=== PATIENT | female | born 2000 | race Caucasian/White ===

== ENCOUNTER 2024-07-09 15:43 | Emergency (ER) | payer MEDICARE, SELFPAY ==
[2024-07-09 15:45] VITALS: BP 111/78
--- NOTE | 2024-07-09 18:01 | ED.GENMED ---
History of Present Illness
General
Chief Complaint: Psychiatric Problem
Source: patient
Time Seen by Provider: 07/09/24 17:40
History of Present Illness
History of Present Illness:
23-year-old female presents to the emergency room requesting to be evaluated by [facility]. Patient's believes that there is a chip implanted in her head by the government that is bothering her. She denies any suicidal or homicidal ideations. She
denies any ingestions. She uses nicotine but denies any other recreational drug use or alcohol use.
Past History
Past History
ED Past Medical History: Psychiatric
ED Past Surgical History: None
Social History
Tobacco: Non-smoker
Alcohol: None
Drug: Other (ecstacy)
Personal: Single
Living: with family
Employment: Not employed
Family History
Family History: Other (Mother with narcissus and per the patient)
Phy Exam
Physical Exam
Physical Exam:
General: Awake, Alert, Oriented X3. No acute distress, somewhat flat
Vitals: unremarkable
Head: Atraumatic
Eyes: Pupils equal, EOMI
Throat: Airway intact, no exudates
Neck: Trachea midline
Lungs: Clear and equal b/l
Heart: Regular rate, no murmurs
Neuro: Nonfocal
Skin: Warm, dry, no rash
Extremities: pulses equal b/l, no edema
Course
Orders/Labs/Results
Orders:
Orders
07/09/24 16:11
Crisis Consult Urgent
Reason for Consult: pt requesting inpt for depression
07/09/24 18:00
Test Result ONCE
07/09/24 20:22
Ipratropium/Albuterol Sulfate [Duoneb] 3 ml .ROUTE .STK-MED ONE
07/09/24 20:23
Dexamethasone Sod Phosphate [Decadron] 20 mg .ROUTE .STK-MED ONE
EPINEPHrine PF [Adrenalin] 1 mg .ROUTE .STK-MED ONE
Vital Signs
Initial and Last Documented VS:
Initial Vital Signs
Temp Pulse Resp BP Pulse Ox
97.9 F 86 16 111/78 100
07/09/24 15:45 07/09/24 15:45 07/09/24 15:45 07/09/24 15:45 07/09/24 15:45
Last Documented Vital Signs
Temp Pulse Resp BP Pulse Ox
97.9 F 80 20 114/72 99
07/09/24 15:45 07/09/24 20:03 07/09/24 20:03 07/09/24 20:03 07/09/24 20:03
MDM/Problems Addressed
Differential Diagnosis Includes:
Psychosis
MDM/Problems Addressed:
Patient has come to the emergency room to see a bilingual social worker at [facility]. She has no medical complaints. There is no medical issues identified on her brief screening exam. Patient medically cleared for what ever treatment [facility] deems
appropriate.
*Pulse Oximetry
Patient hypoxic: no
*Critical Care Note
Total Time (30-74mins, 75-104mins- exclusive of procedures): Not Applicable
ED Attending Note
-
Portions of this chart may have been created with voice recognition software.� Occasional wrong word or��sound alike� substitutions may have occurred due to the inherent limitations of voice recognition software.
Discharge Plan
Departure
Patient Disposition: Home (Routine Discharge)
Date of Disposition: 07/09/24
Time of Disposition: 18:06
Patient with high blood pressure during this ER visit?: No
Condition: Good
Discharge Problem:
Psychosis
Instructions: Schizophrenia, Depression, Adult (DC), Schizophrenia (DC), Depression, Adult ED
Prescriptions:
No Action
clonazepam 0.5 mg tablet
0.5 mg PO Q48H PRN (Reason: anxiety)
Patient Comments:
05/23/2023: last filled 04/28/23, 15 tabs for 30 days from [facility] #[id number]
buspirone 10 mg tablet
10 mg PO BID
Patient Comments:
05/23/2023: Filled 04/28/23 with directions: 5mg po bid for 4 days, maintained 10mg po bid
prazosin 2 mg capsule
2 mg PO HS
bupropion HCl 150 mg tablet extended release 24 hr
150 mg PO DAILY
Interventions
Interventions:
*Risk Screen - Suicide Last Done: 07/09/24 15:51
*Neglect/Abuse Screening Last Done: 07/09/24 15:51
ED- Fall Risk Assessment Last Done: 07/09/24 17:19
*Nursing Disposition Last Done: 07/09/24 22:15
ED-Psychological Assessment Last Done: 07/09/24 17:19
Discharge Date and Time
Discharge Date/Time: 07/09/24 22:20
Print Language: ERITREAN
[2024-07-09 20:03] VITALS: BP 114/72
== END 2024-07-09 22:20 | disposition home or self-care (01) ==
LOC: EMR 15:43
PROVIDERS: EMERGENCY PHYSICIAN Emergency Medicine
DX: F29 Unspecified psychosis not due to a substance or known physiological condition (principal); F32.A Depression, unspecified
CPT/HCPCS: 99282

== ENCOUNTER 2024-08-04 03:39 | Emergency (ER) | payer MEDICARE, SELFPAY ==
[2024-08-04 03:59] VITALS: BP 91/55
--- NOTE | 2024-08-04 04:53 | EDRN ---
Per Dr Ambriz, pt given option of leaving now then going to [place] or staying [facility] to arrange transport for pt to [place] for around 829.
--- NOTE | 2024-08-04 05:07 | ED.GENMED ---
History of Present Illness
General
Chief Complaint: Anxiety
Source: patient
Exam Limitations: none
Time Seen by Provider: 08/04/24 04:39
Nursing documentation reviewed up to this point in time: agreed with
History of Present Illness
History of Present Illness:
Pleasant 23-year-old female presents to the emergency department with increased anxiety. She does have schizoaffective disorder and she is being treated by [facility] in their intensive outpatient program. She is due to be there by 830 this
morning. Last evening she started to have increased anxiety and started to hallucinate. These are her typical symptoms. She is in the midst of a medication change. She was on risperidone which she is tapering off and is starting Vraylar. She
does not feel that it is as effective. Patient denies suicidal homicidal ideation, intent, or plan. She is accompanied by her brother who drove her here. He does not have concerns for SI. Patient does not wish to be treated at this time but
wishes to be seen at her normal appointment at the [facility] for intensive outpatient treatment. She states that just being in the ER was comforting to her and solved her anxiety issues.
Past History
Past History
ED Past Medical History: Psychiatric
ED Past Surgical History: None
Social History
Tobacco: Non-smoker
Alcohol: None
Drug: Other (ecstacy)
Personal: Single
Living: with family
Employment: Not employed
Family History
Family History: Other (Mother with narcissus and per the patient)
Review of Systems
Review of Systems
Allergies reviewed?: Yes
Other source history: family
All Other Systems: ROS reviewed and negative except as documented in HPI and ROS
Constitutional: Reports no symptoms
EENT: Reports no symptoms
Respiratory: Reports no symptoms
Cardiac: Reports no symptoms
ABD/GI: Reports no symptoms
: Reports no symptoms
Musculoskeletal: Reports no symptoms
Skin: Reports no symptoms
Neurological: Reports no symptoms
Endocrine: Reports no symptoms
Hematologic/Lymphatic: Reports no symptoms
Psychiatric: Reports anxiety
Phy Exam
General Physical Exam
General Presentation: well appearing and no apparent distress
General Skin: warm and dry
General Habitus: normal
General Mental: alert
General Hydration: appears well hydrated
ENT Exam
ENT Exam: EOMI, pharynx normal, neck supple and normocephalic
Eye Exam
Eye Exam: PERRL, cornea clear and conjunctiva normal
Cardiovascular Exam
Cardiovascular Exam: regular rate/rhythm, no edema, no murmur and normal peripheral pulses
Pulmonary Exam
Pulmonary Exam: lungs clear, no respiratory distress, no rales, no crackles, no rhonchi, no stridor, no wheezing and no cough
Gastrointestinal Exam
Gastrointestinal Exam: normal bowel sounds, non tender, soft, no organomegaly, no pulsatile mass and non distended
Neurological Exam
Neurological Exam: alert, oriented x3, no motor deficits and speech normal
Musculoskeletal Exam
Musculoskeletal Exam: full ROM and no edema
Skin Exam
Skin Exam: normal color, warm/dry, no rash and no petechia
Psychiatric Exam
Psychiatric Exam: normal mood/affect
Course
Orders/Labs/Results
Orders:
Orders
08/04/24 04:17
Crisis Consult Urgent
Reason for Consult: increased anxiety and delusions
Vital Signs
Initial and Last Documented VS:
Initial Vital Signs
Temp Pulse Resp BP Pulse Ox
97.9 F 66 20 91/55 97
08/04/24 03:59 08/04/24 03:59 08/04/24 03:59 08/04/24 03:59 08/04/24 03:59
Last Documented Vital Signs
Temp Pulse Resp BP Pulse Ox
97.9 F 66 20 91/55 98
08/04/24 03:59 08/04/24 03:59 08/04/24 03:59 08/04/24 03:59 08/04/24 03:59
*Critical Care Note
Total Time (30-74mins, 75-104mins- exclusive of procedures): Not Applicable
ED Attending Note
-
Portions of this chart may have been created with voice recognition software.� Occasional wrong word or��sound alike� substitutions may have occurred due to the inherent limitations of voice recognition software.
Discharge Plan
Departure
Patient Disposition: Psych Facility
Date of Disposition: 08/04/24
Time of Disposition: 05:09
Discharge Problem:
Anxiety
Instructions: Anxiety, Adult (DC)
Prescriptions:
No Action
hydroxyzine pamoate [Vistaril] 50 mg Capsule
50 mg PO BID PRN (Reason: anxiety)
propranolol 20 mg Tablet
20 mg PO BID
Vraylar 4.5 mg Capsule
4.5 mg PO DAILY
Referrals:
[facility] [Active] -
Activity Restrictions/Additional Instructions:
It was a pleasure meeting you and taking part in your care. We hope for your continued healing and wellness.
Please read discharge instructions in their entirety. However, they are for general education and may not describe your exact diagnosis at discharge. Information on your ER visit and medical conditions were discussed with you along with appropriate
follow up information...
If indicated, please take your medications as instructed and indicated on discharge paperwork.
Please schedule a follow up appointment as directed. Call to schedule an appointment
Please return to the emergency department with ANY change in, persisting, or worsening of symptoms. If any of your symptoms do not improve, or persist, or become more severe within 6-12 hours, please return to the emergency department for further
care.
Please return to the emergency department if you develop a headache, neck pain/stiffness, fever greater than 100.4F, chest pain, shortness of breath, persistent nausea, vomiting, slurred speech, difficulty walking, numbness/tingling, weakness, signs
of infection or any other symptoms that are worrisome to you.
If you have any questions or concerns please do not hesitate to call the Hospital at or E-mail me directly at [email or web address]
Interventions
Interventions:
*Risk Screen - Suicide Last Done: 08/04/24 03:59
*General Assessment Last Done: 08/04/24 03:59
*Neglect/Abuse Screening Last Done: 08/04/24 03:59
ED- Fall Risk Assessment Last Done: 08/04/24 03:59
*ED COVID-19 Vaccine History Last Done: 08/04/24 03:59
ED-Psychological Assessment Last Done: 08/04/24 05:06
Discharge Date and Time
Print Language: GREEK
[2024-08-04 05:26] VITALS: BP 108/75
== END 2024-08-04 05:30 ==
LOC: EMR 03:39
PROVIDERS: EMERGENCY PHYSICIAN Student in an Organized Health Care Education/Training Program
DX: F41.9 Anxiety disorder, unspecified (principal); F25.9 Schizoaffective disorder, unspecified
CPT/HCPCS: 99285

== ENCOUNTER 2024-08-27 01:30 | Emergency (ER) | payer MEDICARE, SELFPAY ==
[2024-08-27 01:32] VITALS: BP 128/87
--- NOTE | 2024-08-27 01:44 | ED.GENMED ---
History of Present Illness
General
Chief Complaint: Crisis Evaluation
Source: patient
Exam Limitations: none
Time Seen by Provider: 08/27/24 01:31
Nursing documentation reviewed up to this point in time: agreed with
History of Present Illness
History of Present Illness:
24-year-old female presents via EMS for 302. She states that 'she has a chip in her brain '. She states that her 'covert narcissistic voice that is being relayed through the chip is telling her to kill herself '. She does have a previous suicide
attempt approximately 1-1/2 years ago. She has been diagnosed with schizoaffective disorder, anxiety, and PTSD. Her last menstrual period was 3 weeks ago. She states that she occasionally partakes in 'republican drugs '. Her last use was in April.
She denies alcohol. She does smoke tobacco.
Past History
Past History
ED Past Medical History: Psychiatric
ED Past Surgical History: None
Social History
Tobacco: Non-smoker
Alcohol: None
Drug: Other (ecstacy)
Personal: Single
Living: with family
Employment: Not employed
Family History
Family History: Other (Mother with narcissus and per the patient)
Review of Systems
Review of Systems
Allergies reviewed?: Yes
Other source history: ambulance crew
All Other Systems: ROS reviewed and negative except as documented in HPI and ROS
Psychiatric: Reports anxiety, suicidal (?) and hallucinations
Phy Exam
General Physical Exam
General Presentation: mild distress
General age: appears stated age
General Skin: warm and dry
General Habitus: normal
General Mental: alert and anxious
General Hydration: appears well hydrated
ENT Exam
ENT Exam: EOMI, pharynx normal, neck supple and normocephalic
Eye Exam
Eye Exam: PERRL, cornea clear and conjunctiva normal
Cardiovascular Exam
Cardiovascular Exam: regular rate/rhythm and no edema
Pulmonary Exam
Pulmonary Exam: lungs clear and no respiratory distress
Gastrointestinal Exam
Gastrointestinal Exam: normal bowel sounds, non tender, soft, no organomegaly, no pulsatile mass and non distended
Neurological Exam
Neurological Exam: alert and oriented x3
Musculoskeletal Exam
Musculoskeletal Exam: full ROM
Skin Exam
Skin Exam: normal color and warm/dry
Psychiatric Exam
Psychiatric Exam: anxious, delusions, hallucination, paranoia and suicidal (?)
Course
Orders/Labs/Results
Orders:
Orders
08/27/24 01:47
Test Result ONCE
08/27/24 01:48
Crisis Consult Urgent
Reason for Consult: suicidality
one to one [ED Special Safety Observation] ONCE
Observation level: One to Two
08/27/24 04:06
HCG, Urine Qualitative Screen Urgent
Date Specimen was Collected: 08/27/24
Time Specimen was Collected: 01:51
Urine Drug Abuse Screen Urgent
Date Specimen was Collected: 08/27/24
Time Specimen was Collected: 01:51
08/27/24 05:58
HydrOXYZINE [Atarax] 50 mg PO NOW STA
08/27/24 06:16
Propranolol [Inderal] 20 mg PO NOW STA
Vital Signs
Initial and Last Documented VS:
Initial Vital Signs
Temp Pulse Resp BP Pulse Ox
98.7 F 84 18 128/87 99
08/27/24 01:32 08/27/24 01:32 08/27/24 01:32 08/27/24 01:32 08/27/24 01:32
Last Documented Vital Signs
Temp Pulse Resp BP Pulse Ox
98.5 F 84 18 128/87 99
08/27/24 01:32 08/27/24 01:32 08/27/24 01:32 08/27/24 01:32 08/27/24 01:32
*Critical Care Note
Total Time (30-74mins, 75-104mins- exclusive of procedures): Not Applicable
Update Note
Update Note:
Patient was seen by telepsych. They recommended discharge to home.
Crisis told patient that telepsych did not recommend 302.
I feel strongly that patient should be 302. I wanted to discuss this with the patient.
Patient was upset because she did not want to be in a psychiatric hospital. She stated that ' just because the voices are telling her to harm herself does not mean she is actually going to do it 'she stated that the 'chip in her head 'is causing
some of her problems. \\
Patient has had a suicide attempt in the past.
Brother, who filled out the 302 is at the bedside and he is concerned because he has to go to work today and patient will be left alone immediately after discharge.
I do not feel that this is a safe situation. I have put in a consult to Dr. Cadet who is on-call for psychiatry today.
ED Attending Note
-
Portions of this chart may have been created with voice recognition software.� Occasional wrong word or��sound alike� substitutions may have occurred due to the inherent limitations of voice recognition software.
Discharge Plan
Departure
Patient Status:: 302
Condition: Good
Discharge Problem:
Acute paranoia, Suicidal ideation
Prescriptions:
No Action
hydroxyzine pamoate [Vistaril] 50 mg Capsule
50 mg PO BID PRN (Reason: anxiety)
propranolol 20 mg Tablet
20 mg PO BID
Vraylar 4.5 mg Capsule
6 mg PO DAILY
gabapentin 600 mg Tablet
600 mg PO HS
Referrals:
UNKNOWN - PT DOES,NOT KNOW [Family Provider] -
Interventions
Interventions:
*Risk Screen - Suicide Last Done: 08/27/24 01:32
*General Assessment Last Done: 08/27/24 01:32
*Neglect/Abuse Screening Last Done: 08/27/24 01:32
*ED- Fall Risk Assessment Last Done: 08/27/24 01:44
*ED COVID-19 Vaccine History Last Done: 08/27/24 01:44
ED-Psychological Assessment Last Done: 08/27/24 02:18
Discharge Date and Time
Print Language: ERITREAN
[2024-08-27 01:48] VITALS: BMI 18.6
[2024-08-27 01:49] VITALS: BMI 18.6
[2024-08-27 04:20] LABS: HCG, Urine Qualitative Screen Negative
[2024-08-27 05:04] LABS: Amphetamines Negative (Negative); Barbiturates Negative (Negative); Benzodiazepines Negative (Negative); Buprenorphine Negative (Negative); Cocaine Negative (Negative); Marijuana Negative (Negative); Methadone Negative (Negative); Methamphetamines Negative (Negative); Opiates Negative (Negative); Phencyclidine Negative (Negative); Tricyclic Antidepressants Negative (Negative)
[2024-08-27] MEDS: ATARAX 50 MG PO (06:09)
[2024-08-27 06:48] VITALS: BP 107/69
[2024-08-27] MEDS: INDERAL 20 MG PO (07:37)
--- NOTE | 2024-08-27 08:23 | ED.GENMED ---
History of Present Illness
General
Chief Complaint: Crisis Evaluation
Time Seen by Provider: 08/27/24 01:31
Past History
Past History
ED Past Medical History: Psychiatric
ED Past Surgical History: None
Social History
Tobacco: Non-smoker
Alcohol: None
Drug: Other (ecstacy)
Personal: Single
Living: with family
Employment: Not employed
Family History
Family History: Other (Mother with narcissus and per the patient)
Course
Orders/Labs/Results
Orders:
Orders
08/27/24 01:47
Test Result ONCE
08/27/24 01:48
Crisis Consult Urgent
Reason for Consult: suicidality
one to one [ED Special Safety Observation] ONCE
Observation level: One to Two
08/27/24 04:06
HCG, Urine Qualitative Screen Urgent
Date Specimen was Collected: 08/27/24
Time Specimen was Collected: 01:51
Urine Drug Abuse Screen Urgent
Date Specimen was Collected: 08/27/24
Time Specimen was Collected: 01:51
08/27/24 05:58
HydrOXYZINE [Atarax] 50 mg PO NOW STA
08/27/24 Breakfast
Regular
At Your Request: Full Participation
Does patient need a safe tray?: Yes
08/27/24 06:41
PSYCHIATRY CONSULT Urgent
Consulting Provider: Simon Cadet
Was physician already notified: No
Reason for consult: Suicidal ideation, schizoaffective disorder, hallucinations
08/27/24 06:42
Consult Notification Routine
Specialty to Notify: Psychiatry
08/27/24 06:44
Propranolol [Inderal] 20 mg PO NOW STA
08/27/24 08:23
Asenapine Sublingual [Saphris] 5 mg SL NOW STA
Vital Signs
Initial and Last Documented VS:
Initial Vital Signs
Temp Pulse Resp BP Pulse Ox
98.7 F 84 18 128/87 99
08/27/24 01:32 08/27/24 01:32 08/27/24 01:32 08/27/24 01:32 08/27/24 01:32
Last Documented Vital Signs
Temp Pulse Resp BP Pulse Ox
98.5 F 83 16 107/69 98
08/27/24 06:48 08/27/24 07:37 08/27/24 06:48 08/27/24 07:37 08/27/24 06:48
ED Attending Note
-
Portions of this chart may have been created with voice recognition software.� Occasional wrong word or��sound alike� substitutions may have occurred due to the inherent limitations of voice recognition software.
Discharge Plan
Departure
Patient Disposition: Psych Facility
Date of Disposition: 08/27/24
Time of Disposition: 08:23
Patient Status:: 302
Patient with high blood pressure during this ER visit?: No
Condition: Good
Discharge Problem:
Acute paranoia, Suicidal ideation
Prescriptions:
No Action
hydroxyzine pamoate [Vistaril] 50 mg Capsule
50 mg PO BID PRN (Reason: anxiety)
propranolol 20 mg Tablet
20 mg PO BID
Vraylar 4.5 mg Capsule
6 mg PO DAILY
gabapentin 600 mg Tablet
600 mg PO HS
Referrals:
UNKNOWN - PT DOES,NOT KNOW [Family Provider] -
Interventions
Interventions:
*Risk Screen - Suicide Last Done: 08/27/24 01:32
*General Assessment Last Done: 08/27/24 01:32
*Neglect/Abuse Screening Last Done: 08/27/24 01:32
*ED- Fall Risk Assessment Last Done: 08/27/24 01:44
*ED COVID-19 Vaccine History Last Done: 08/27/24 01:44
ED-Psychological Assessment Last Done: 08/27/24 02:18
Discharge Date and Time
Print Language: CZECH
--- NOTE | 2024-08-27 08:24 | ED.CRISIS ---
ED Crisis Note
ED Crisis Note
Subjective:
302
Objective:
Concerns for suicidal thoughts and psychosis
Assessment/Plan:
Patient agitated after learning that her 302 was upheld and that she is going to be hospitalized at [facility].. Will have to medicate patient with Saphris given that she is pushing doors and screaming and we are concerned that she may try to leave
--- NOTE | 2024-08-27 10:09 | EDRN ---
psychiatrist Dr. Cadet currently at the pts bedside speaking with the pt
--- NOTE | 2024-08-27 11:03 | CON.MD ---
Consultation - Medical
-
patient seen chart reviewed. discussed with staff, patient's brother as well as dr gardiner. the patient is known to me from 2022 when she allegedly drank bleach and a 302 petition filed. allegedly bc although it was alleged she drank bleach in
'gulps' she was in no distress when i saw her and there was no evidence of such an ingestion. she has hx of psychosis. she believes a chip was implanted in her brain. she had started to hear multiple voices and her explanation became that a chip
had been implanted in her brain. she has become so distraught that she is banging her head to make it stop. she admits she made a comment re si but this was she says today to frighten the voices into stopping their torment of her. she has taken a
variety of antipsychotics including zyprexa abilify risperdal and now vraylar. brother feels none have gotten a fair try except the vraylar which she has taken reliably. she did not take the others consistenty. patient had been hosp at [place] then
in the [facility] then in iop at [facility] most recently current dose of vraylar is 6 mg . she has been taking it for three to four weeks. she also takes inderal 20 mg bid gabapentin 600 mg q hs and vistaril 50 mg prn. she struggles to sleep. appetite
is ok. she is denying at this moment that she wishes to hurt self. telepsych did not uphold the 302 but er doc felt he could not dc her and left it to me to reevaluate in the am. at this point given brothers discomfort with her being home all day
when he is at work will be hospitalizing her at [facility]. i have suggested a trial of clozaril which could help with psychotic sx when other meds have failed
past psych hosp patient has been hosp many times in the past several years. she is seen outpt at [facility] by dr gardiner
medical hx generally healthy
substance abuse cannabis in the past denies currently
social resides w brother. was living w but they are taking a break. worked [employer]. alleges father neglectful mother abusive brother very supportive she is one of six kids grew up localaly finished hs
fh dad w cannabis mom described as 'bpd'
mse alert ox3 cooperative speech and thought process nl delusional see above mood is neutral. patient is denying si but does not deny hitting her head repeatedly aver intelligence insight judgment lacking
dx unspecified psychosis likely schizophrenia
plan upholding 302 explained why to patient would strongly consider clozaril. suggested brief in pt stay followed by php followed by iop. ativan one mg now prior to ambulance transport to [facility].
[2024-08-27] MEDS: ATIVAN 1 MG PO (11:13)
[2024-08-27] MEDS: NICODERM TRANSDERMAL 14 MG TRANSDERM (11:13)
[2024-08-27 11:17] VITALS: BP 108/78
== END 2024-08-27 11:45 ==
LOC: EMR 01:30
PROVIDERS: CONSULT PHYSICIAN Psychiatry & Neurology Psychiatry; EMERGENCY PHYSICIAN Student in an Organized Health Care Education/Training Program
DX: F22 Delusional disorders (principal); R45.851 Suicidal ideations; F29 Unspecified psychosis not due to a substance or known physiological condition; F25.9 Schizoaffective disorder, unspecified; F41.9 Anxiety disorder, unspecified; F43.10 Post-traumatic stress disorder, unspecified; Z91.51 Personal history of suicidal behavior
CPT/HCPCS: 99285; 80306; 81025

== ENCOUNTER 2024-10-28 20:59 | Emergency (ER) | payer MEDICARE, SELFPAY ==
[2024-10-28 21:05] VITALS: BP 105/70
[2024-10-28 22:04] VITALS: BP 105/70
[2024-10-28 22:11] VITALS: BMI 18.9
[2024-10-28 22:30] LABS: Urine Albumin 2+ (Neg - Trace); Urine Bilirubin Negative (Negative); Urine Character Clear (Clear); Urine Color Yellow; Urine Glucose Negative (Negative); Urine Ketone Negative (Negative); Urine Leukocyte 1+ (Negative); Urine Nitrite Negative (Negative); Urine Occult Blood 4+ (Negative); Urine Urobilinogen Negative (Neg - 1+)
[2024-10-28 22:31] LABS: HCG, Urine Qualitative Screen Negative
[2024-10-28 22:40] LABS: Amphetamines Negative (Negative); Barbiturates Negative (Negative); Benzodiazepines Negative (Negative); Buprenorphine Negative (Negative); Cocaine Negative (Negative); Marijuana Positive (Negative); Methadone Negative (Negative); Methamphetamines Negative (Negative); Opiates Negative (Negative); Phencyclidine Negative (Negative); Tricyclic Antidepressants Negative (Negative); Urine Calcium Oxalate Crystals Present
[2024-10-28 22:41] LABS: Urine Bacteria Moderate (Negative); Urine Mucus Many; Urine Red Blood Cell 50-60 /HPF (0-2)
--- NOTE | 2024-10-28 23:05 | ED.GENMED ---
History of Present Illness
<DO Emily De Jesus Last Filed: 10/28/24 23:10>
General
Chief Complaint: Crisis Evaluation
Time Seen by Provider: 10/28/24 21:15
History of Present Illness
History of Present Illness:
24-year-old female with history of paranoia and anxiety presenting to the emergency department under 302 by police. Per police, patient has been living with her brother. Brother had reported auditory and visual hallucinations. She was noted to
leave the house without shoes, was walking in the street, found by police and subsequently 302 was filed. Patient arrives to the hospital very anxious. She denies suicidal ideations. She denies any hallucinations. She does note that she was very
anxious because hospitals are triggering to her. She denies any acute medical complaints.
Past History
<DO Emily De Jesus Last Filed: 10/28/24 23:10>
Past History
ED Past Medical History: Psychiatric
ED Past Surgical History: None
Social History
Tobacco: Non-smoker
Alcohol: None
Drug: Other (ecstacy)
Personal: Single
Living: with family
Employment: Not employed
Family History
Family History: Other (Mother with narcissus and per the patient)
Phy Exam
<DO Emily De Jesus Last Filed: 10/28/24 23:10>
Physical Exam
Physical Exam:
General: Well-appearing, no clinical signs of dehydration, nontoxic and in no acute distress
HEENT: protecting airway
Neck: appears supple
CV: Normal heart rate
Resp: No accessory muscle use, no increased work of breathing
Abd: No distention
Extremities: No deformities, no swelling
Neuro: alert, no focal neurologic deficit
: deferred
Rectal: deferred
Psych: Anxious, hysterical
Skin: Intact
Course
<Domonique Davala, DO - Last Filed: 10/28/24 23:10>
Orders/Labs/Results
Orders:
Orders
10/28/24 22:16
Crisis Consult Urgent
Reason for Consult: 302
Test Result ONCE
10/28/24 22:23
, Urine Qualitative Screen [HCG, Urine Qualitative Screen] Urgent
Date Specimen was Collected: 10/28/24
Time Specimen was Collected: 22:19
Urinalysis Reflex To Culture Urgent
Date Specimen was Collected: 10/28/24
Time Specimen was Collected: 22:19
Urine Drug Abuse Screen Urgent
Date Specimen was Collected: 10/28/24
Time Specimen was Collected: 22:19
Urine Microscopic Reflex Cult Urgent
Urine Culture Urgent
APRIL Source: U
Specimen Description:
Date Specimen was Collected: 10/28/24
Time Specimen was Collected: 22:19
Abnormal Lab Results
10/28/24
22:23
Ur Occult Blood Reflex 4+ A
(Negative)
Leukocyte Esterase Rfl 1+ A
(Negative)
Urine RBC 50-60 A /HPF
(0-2)
Urine Bacteria (Reflex) Moderate A
(Negative)
Urine Albumin (Reflex) 2+ A
(Neg - Trace)
U Marijuana (THC) Screen Positive H
(Negative)
Vital Signs
Initial and Last Documented VS:
Initial Vital Signs
Temp Pulse Resp BP Pulse Ox
98.2 F 109 18 105/70 98
10/28/24 21:05 10/28/24 21:05 10/28/24 21:05 10/28/24 21:05 10/28/24 21:05
Last Documented Vital Signs
Temp Pulse Resp BP Pulse Ox
98.2 F 109 18 105/70 98
10/28/24 22:04 10/28/24 22:04 10/28/24 22:04 10/28/24 22:04 10/28/24 22:11
<Lance Ambriz, DO - Last Filed: 10/29/24 01:26>
Orders/Labs/Results
Orders:
Orders
10/28/24 22:16
Crisis Consult Urgent
Reason for Consult: 302
Test Result ONCE
10/28/24 22:23
, Urine Qualitative Screen [HCG, Urine Qualitative Screen] Urgent
Date Specimen was Collected: 10/28/24
Time Specimen was Collected: 22:19
Urinalysis Reflex To Culture Urgent
Date Specimen was Collected: 10/28/24
Time Specimen was Collected: 22:19
Urine Drug Abuse Screen Urgent
Date Specimen was Collected: 10/28/24
Time Specimen was Collected: 22:19
Urine Microscopic Reflex Cult Urgent
Urine Culture Urgent
APRIL Source: U
Specimen Description:
Date Specimen was Collected: 10/28/24
Time Specimen was Collected: 22:19
Abnormal Lab Results
10/28/24
22:23
Ur Occult Blood Reflex 4+ A
(Negative)
Leukocyte Esterase Rfl 1+ A
(Negative)
Urine RBC 50-60 A /HPF
(0-2)
Urine Bacteria (Reflex) Moderate A
(Negative)
Urine Albumin (Reflex) 2+ A
(Neg - Trace)
U Marijuana (THC) Screen Positive H
(Negative)
Vital Signs
Initial and Last Documented VS:
Initial Vital Signs
Temp Pulse Resp BP Pulse Ox
98.2 F 109 18 105/70 98
10/28/24 21:05 10/28/24 21:05 10/28/24 21:05 10/28/24 21:05 10/28/24 21:05
Last Documented Vital Signs
Temp Pulse Resp BP Pulse Ox
98.2 F 109 18 105/70 98
10/28/24 22:04 10/28/24 22:04 10/28/24 22:04 10/28/24 22:04 10/28/24 22:11
<Domonique Franz, DO - Last Filed: 10/28/24 23:10>
MDM/Problems Addressed
MDM/Problems Addressed:
24-year-old female with history of paranoia and anxiety presenting under 302 status by police.
Patient is in no acute distress on arrival, however is hysterical. She was able to be verbally de-escalated. She notes that she is unsure why she is in the hospital, denies anything that the police are stating. She is presently denying any
suicidal ideations, paranoia, hallucinations. She denies acute medical complaints. Patient has been seen and evaluated in the past for paranoia. Will consult with crisis.
22:40 -Per crisis, plan for telepsych and ultimate decision regarding 302 status
<Domonique Franz, DO - Last Filed: 10/28/24 23:10>
*Critical Care Note
Total Time (30-74mins, 75-104mins- exclusive of procedures): Not Applicable
<Lance Ambriz, DO - Last Filed: 10/29/24 01:26>
Update Note
Update Note:
Patient was seen while lying on the floor of the room 34 under one-to-one observation. Patient stated that she wanted the bed removed from the room because 'it is a trigger for her PTSD '. She is upset and wants to file a grievance that somebody
'lied and filled out a 302 on her '. She states that she also wants if filed a grievance because she cannot smoke her medical marijuana. I did uphold the 302 at the recommendation of telepsych.
ED Attending Note
<Domonique Franz DO - Last Filed: 10/28/24 23:10>
-
Portions of this chart may have been created with voice recognition software.� Occasional wrong word or��sound alike� substitutions may have occurred due to the inherent limitations of voice recognition software.
Discharge Plan
Departure
Patient Disposition: Psych Facility
Date of Disposition: 10/29/24
Time of Disposition: :
Patient Status:: 302
Discharge Problem:
auditory and visual hallucinations
Prescriptions:
No Action
hydroxyzine pamoate [Vistaril] 50 mg Capsule
50 mg PO BID PRN (Reason: anxiety)
propranolol 20 mg Tablet
20 mg PO BID
Vraylar 4.5 mg Capsule
6 mg PO DAILY
gabapentin 600 mg Tablet
600 mg PO HS
Referrals:
NONE,* [Family Provider] -
Interventions
Interventions:
*Risk Screen - Suicide Last Done: 10/28/24 22:04
*General Assessment Last Done: 10/28/24 22:04
*Neglect/Abuse Screening Last Done: 10/28/24 22:04
*ED- Fall Risk Assessment Last Done: 10/28/24 22:04
*ED COVID-19 Vaccine History Last Done: 10/28/24 22:04
ED-Psychological Assessment Last Done: 10/28/24 22:40
Discharge Date and Time
Print Language: BHUTANESE
== END 2024-10-29 04:12 ==
LOC: EMR 20:59
PROVIDERS: EMERGENCY PHYSICIAN Student in an Organized Health Care Education/Training Program
DX: F25.0 Schizoaffective disorder, bipolar type (principal); R44.0 Auditory hallucinations; R44.1 Visual hallucinations; R45.851 Suicidal ideations; F41.9 Anxiety disorder, unspecified; F43.10 Post-traumatic stress disorder, unspecified; Z91.148 Patient's other noncompliance with medication regimen for other reason; F12.90 Cannabis use, unspecified, uncomplicated
CPT/HCPCS: 99285; 80306; 81003; 81015; 81025; 87086